=== PATIENT | female | born 1950 | race Caucasian/White ===

== ENCOUNTER 2023-04-22 04:00 | Emergency (ER) | payer OTHER ==
[2023-04-22] MEDS ORDERED: Aspirin 81 MG Tab.Chew PO ONE (04:19)
[2023-04-22] MEDS ORDERED: Sodium Chloride 0.9% 10 ML Syringe FLUSH PRN (04:19)
[2023-04-22 04:30] LABS: BASOPHILS PERCENT AUTO 0.4 % (0.0-1.0); EOSINOPHILS PERCENT AUTO 1.6 % (1.0-3.0); HEMATOCRIT 33.4 % (37.0-47.0); HEMOGLOBIN 10.3 g/dL (12.0-16.0); LYMPHOCYTES PERCENT AUTO 17.1 % (20.5-50.1); MEAN CORPUSCULAR HEMOGLOBIN 25.7 pg (27.0-34.0); MEAN CORPUSCULAR HGB CONC 30.8 g/dL (33.0-35.0); MEAN CORPUSCULAR VOLUME 83.3 fL (80-100); MONOCYTES PERCENT AUTO 13.7 % (2-8); NEUTROPHILS PERCENT AUTO 67.2 % (42.2-75.2); PLATELET COUNT,PLT 238 10^3/uL (150-450); RED BLOOD CELL COUNT 4.01 10^6/uL (4.2-5.4); WHITE BLOOD CELL COUNT,WBC 7.7 10^3/uL (5.0-10.0)
[2023-04-22] MEDS ORDERED: Diltiazem 25 MG/5 ML SDV IVPUSH ONE (04:37)
[2023-04-22 05:01] LABS: A/G RATIO 1.1; ALBUMIN 3.7 g/dL (3.4-5.0); ANION GAP 13.9 mEq/L (7-13); BILIRUBIN TOTAL 0.3 mg/dL (0.2-1.0); BUN/CREATININE RATIO 16.7 (No establ ref range); CALCIUM 9.7 mg/dL (8.5-10.1); CREATININE 0.84 mg/dL (0.55-1.02); EST CRCL DRUG DOSING (CG) 44.34 mL/min; POTASSIUM,K 3.9 mmol/L (3.5-5.1); TSH ULTRASENSITIVE 4.07 uIU/mL (0.36-3.74)
[2023-04-22 05:25] LABS: APPEARANCE,URINE CLEAR (CLEAR); BILIRUBIN,URINE NEGATIVE (NEGATIVE); COLOR,URINE YELLOW (YELLOW); GLUCOSE,URINE NEGATIVE (NEGATIVE); KETONES,URINE NEGATIVE (NEGATIVE); LEUKOCYTE ESTERASE,URINE TRACE (NEGATIVE); NITRITE,URINE NEGATIVE (NEGATIVE); OCCULT BLOOD,URINE NEGATIVE (NEGATIVE); PH,URINE 7.5 (5.0-9.0); PROTEIN,URINE NEGATIVE (NEGATIVE); UROBILINOGEN,URINE 0.2 mg/dL (0.2-1.0)
[2023-04-22 05:32] LABS: BACTERIA,URINE MODERATE /HPF (0-FEW/HPF); EPITHELIAL CELLS,URINE MODERATE /HPF (NOT SEEN); MUCUS,URINE FEW /LPF (NOT SEEN); RBC,URINE 0-5 /HPF (0-5)
[2023-04-22] MEDS ORDERED: Take Home: Ciprofloxacin HCl 500 MG, 6 Tab Pack PO ONE (05:46)
[2023-04-22] MEDS ORDERED: Ciprofloxacin 500 MG Tab PO ONE (05:46)
== END 2023-04-22 06:12 | disposition home or self-care (01) ==
LOC: DL.ED 04:00
DX: I48.0 Paroxysmal atrial fibrillation (principal); N30.01 Acute cystitis with hematuria; R94.6 Abnormal results of thyroid function studies; I10 Essential (primary) hypertension; E11.9 Type 2 diabetes mellitus without complications; Z88.5 Allergy status to narcotic agent; Z87.891 Personal history of nicotine dependence
CPT/HCPCS: 36415; 80053; 81001; 83735; 84443; 84484; 85025; 87086; 87088; 87186; 93005; 96374; 99285; A9270; J3490; 93010; 99283

== ENCOUNTER 2023-06-08 05:52 | Emergency (ER) | payer MEDICARE, OTHER ==
[2023-06-08] MEDS ORDERED: Diltiazem 25 MG/5 ML SDV IVPUSH ONE ×2 (06:10→07:04)
[2023-06-08] MEDS ORDERED: Sodium Chloride 0.9% 10 ML Syringe FLUSH PRN (06:11)
[2023-06-08 06:24] LABS: BASOPHILS PERCENT AUTO 0.4 % (0.0-1.0); EOSINOPHILS PERCENT AUTO 1.7 % (1.0-3.0); HEMATOCRIT 32.3 % (37.0-47.0); HEMOGLOBIN 9.8 g/dL (12.0-16.0); LYMPHOCYTES PERCENT AUTO 15.9 % (20.5-50.1); MEAN CORPUSCULAR HEMOGLOBIN 27.2 pg (27.0-34.0); MEAN CORPUSCULAR HGB CONC 30.3 g/dL (33.0-35.0); MEAN CORPUSCULAR VOLUME 89.7 fL (80-100); MONOCYTES PERCENT AUTO 17.5 % (2-8); NEUTROPHILS PERCENT AUTO 64.5 % (42.2-75.2); PLATELET COUNT,PLT 202 10^3/uL (150-450); WHITE BLOOD CELL COUNT,WBC 5.2 10^3/uL (5.0-10.0)
[2023-06-08] MEDS ORDERED: Diltiazem 125 MG in Sodium Chloride 0.9% 100 ML IV SCH (06:45)
[2023-06-08] MEDS ORDERED: Digoxin 500 MCG/2 ML Amp IVPUSH ONE (07:11)
[2023-06-08] MEDS ORDERED: Ondansetron 4 MG/2 ML SDV IV ONE (07:11)
[2023-06-08] MEDS ORDERED: Metoprolol Succinate 50 MG Tab.ER PO ONE (07:15)
[2023-06-08] MEDS ORDERED: Apixaban 5 MG Tab PO ONE (07:21)
[2023-06-08] MEDS ORDERED: Sodium Chloride 0.9% 500 ML IV SCH (07:45)
[2023-06-08 10:48] LABS: A/G RATIO 1.2; ALBUMIN 3.8 g/dL (3.4-5.0); ANION GAP 13.7 mEq/L (7-13); BILIRUBIN TOTAL 0.4 mg/dL (0.2-1.0); BUN/CREATININE RATIO 21.1 (No establ ref range); CALCIUM 9.5 mg/dL (8.5-10.1); CREATININE 0.76 mg/dL (0.55-1.02); EST CRCL DRUG DOSING (CG) 49.01 mL/min; POTASSIUM,K 3.7 mmol/L (3.5-5.1)
== END 2023-06-08 08:58 ==
LOC: DL.ED 05:52
DX: I20.8 Other forms of angina pectoris (principal); I48.91 Unspecified atrial fibrillation; E78.00 Pure hypercholesterolemia, unspecified; I10 Essential (primary) hypertension; E11.9 Type 2 diabetes mellitus without complications; Z87.891 Personal history of nicotine dependence; Z79.84 Long term (current) use of oral hypoglycemic drugs; Z79.82 Long term (current) use of aspirin; Z88.5 Allergy status to narcotic agent; Z79.01 Long term (current) use of anticoagulants
CPT/HCPCS: 36415; 71045; 80053; 83735; 84484; 85025; 93005; 93010; 96365; 96366; 96375; 96376; 99285; A9270; J1160; J2405; J3490; J7040

== ENCOUNTER 2025-04-26 02:29 | Emergency (ER) | payer MEDICARE ==
[2025-04-26 03:07] LABS: BASOPHILS PERCENT AUTO 0.2 % (0.0-1.0); EOSINOPHILS PERCENT AUTO 1.6 % (1.0-3.0); HEMATOCRIT 38.2 % (37.0-47.0); HEMOGLOBIN 12.8 g/dL (12.0-16.0); MEAN CORPUSCULAR HEMOGLOBIN 30.1 pg (27.0-34.0); MEAN CORPUSCULAR HGB CONC 33.5 g/dL (33.0-35.0); MEAN CORPUSCULAR VOLUME 89.9 fL (80-100); MONOCYTES PERCENT AUTO 15.1 % (2-8); NEUTROPHILS PERCENT AUTO 63.1 % (42.2-75.2); PLATELET COUNT,PLT 199 10^3/uL (150-450); RED BLOOD CELL COUNT 4.25 10^6/uL (4.2-5.4); WHITE BLOOD CELL COUNT,WBC 8.3 10^3/uL (5.0-10.0)
[2025-04-26 03:35] LABS: A/G RATIO 1.1; ALBUMIN 3.8 g/dL (3.4-5.0); ANION GAP 11.8 mEq/L (7-13); BILIRUBIN TOTAL 0.5 mg/dL (0.2-1.0); BUN/CREATININE RATIO 17.3 (No establ ref range); CALCIUM 9.9 mg/dL (8.5-10.1); CREATININE 0.81 mg/dL (0.55-1.02); EST CRCL DRUG DOSING (CG) 44.59 mL/min; POTASSIUM,K 3.8 mmol/L (3.5-5.1); PROTEIN TOTAL,TP 7.4 g/dL (6.4-8.2)
[2025-04-26] MEDS: Diltiazem 25 MG/5 ML SDV IVPUSH ONE (04:36)
[2025-04-26] MEDS ORDERED: Diltiazem 125 MG in Sodium Chloride 0.9% 100 ML IV SCH (05:15)
== END 2025-04-26 06:24 | disposition home or self-care (01) ==
LOC: DL.ED 02:29
DX: I48.91 Unspecified atrial fibrillation (principal); E78.00 Pure hypercholesterolemia, unspecified; I10 Essential (primary) hypertension; E11.9 Type 2 diabetes mellitus without complications; Z95.5 Presence of coronary angioplasty implant and graft; Z88.5 Allergy status to narcotic agent; Z79.01 Long term (current) use of anticoagulants; Z79.82 Long term (current) use of aspirin; Z79.899 Other long term (current) drug therapy; Z79.84 Long term (current) use of oral hypoglycemic drugs
CPT/HCPCS: 36415; 71046; 80053; 84484; 85025; 85379; 93005; 93010; 96374; 99284; 99285; J3490